=== PATIENT | female | born 1975 ===

== ENCOUNTER 2020-09-28 13:50 | Emergency (ER) | payer MEDICAID, OTHER ==
[~2020-09-28] VITALS: Ht 154.9 cm; Wt 121.1 kg
[2020-09-28] MEDS ORDERED: cefTRIAXone SOD 1,000 MG VL IM ONE (15:00)
[2020-09-28 15:02] VITALS: BP 148/79
== END 2020-09-28 15:49 | disposition home or self-care (01) ==
LOC: ER 13:50
DX: U07.1 COVID-19 (principal); J40 Bronchitis, not specified as acute or chronic; J02.9 Acute pharyngitis, unspecified; I10 Essential (primary) hypertension
CPT/HCPCS: 71045; 93005; 96372; 99283; J0696